=== PATIENT | female | born 1975 | race Caucasian/White ===

== ENCOUNTER 2017-05-26 07:56 | Emergency (ER) | payer MEDICAID ==
[~2017-05-26] VITALS: Ht 170.2 cm; Wt 61.2 kg
[2017-05-26] MEDS ORDERED: [UNRECOGNIZED DRUG - REMARK] (08:09)
--- NOTE | 2017-05-26 08:14 | NUR ---
PT IS IN ROOM #2A. DR RUVALCABA EVALUATED THE PT.
[2017-05-26] MEDS ORDERED: HYDROCODONE/APAP 10-325 MG TABLET PO ONE (08:30)
[2017-05-26] MEDS ORDERED: HYDROCODONE/APAP 10-325 MG TABLET ONE (08:39)
--- NOTE | 2017-05-26 08:44 | NUR ---
PT WAS D/C TO HOME. D/C INSTRUCTIONS GIVEN TO THE PT.
[2017-05-26 08:45] VITALS: BP 128/78
== END 2017-05-26 08:46 | disposition home or self-care (01) ==
LOC: ER 07:56
DX: L03.113 Cellulitis of right upper limb (principal); Z88.5 Allergy status to narcotic agent
CPT/HCPCS: 73130; 99284; A4663

== ENCOUNTER 2017-05-29 21:23 | Emergency (ER) | payer MEDICAID ==
[~2017-05-29] VITALS: Ht 170.2 cm; Wt 61.2 kg
[~2017-05-29 21:23] MED LIST: [UNRECOGNIZED DRUG - REMARK]
--- NOTE | 2017-05-29 23:13 | NUR ---
Patient discharged to home in stable conditon. Written and verbal after care instructions given. Patient verbalizes understanding of instructions.
[2017-05-29] MEDS ORDERED: predniSONE 20 MG TABLET PO ONE (23:15)
[2017-05-29] MEDS ORDERED: predniSONE 10 MG TABLET ONE (23:21)
[2017-05-29] MEDS ORDERED: predniSONE 50 MG TABLET ONE (23:21)
== END 2017-05-29 23:15 | disposition home or self-care (01) ==
LOC: ER 21:24
DX: M02.341 Reiter's disease, right hand (principal)
CPT/HCPCS: A4663; J7512

== ENCOUNTER 2019-05-07 13:41 | Inpatient (IN) | payer MEDICAID, OTHER ==
[2019-05-07] VITALS (9 sets, daily range): BP systolic 112–142; BP diastolic 76–91
[~2019-05-07] VITALS: Ht 167.6 cm; Wt 60.8 kg
[2019-05-07] MEDS ORDERED: ADENOSINE 6 MG/2 ML SYR IV ONE ×2 (13:58→14:00)
[2019-05-07] MEDS ORDERED: LORAZEPAM 2 MG/1 ML VIAL IV ONE ×3 (14:00→18:15)
[2019-05-07] MEDS ORDERED: LORAZEPAM 2 MG/1 ML VIAL ONE ×2 (14:08→14:55)
[2019-05-07 14:30] LABS: BASOPHILS # (AUTO) 0.1 K/uL (0.0-8.0); EOSINOPHILS # (AUTO) 0.1 K/uL (0.0-0.7); EOSINOPHILS % (AUTO) 1.8 % (0.0-7.0); HEMATOCRIT 38.4 % (31.2-41.9); HEMOGLOBIN 13.2 g/dL (10.9-14.3); LYMPHOCYTES # (AUTO) 2.9 K/uL (20.0-40.0); LYMPHOCYTES % (AUTO) 49.1 % (20.5-51.5); MEAN CORPUSCULAR HEMOGLOBIN 31.1 uug (24.7-32.8); MEAN CORPUSCULAR HGB CONC 35 g/dL (32.3-35.6); MEAN CORPUSCULAR VOLUME 90.3 fL (75.5-95.3); MONOCYTES # (AUTO) 0.3 K/uL (2.0-10.0); MONOCYTES % (AUTO) 5.7 % (0.0-11.0); NEUTROPHILS # (AUTO) 2.5 K/uL (1.8-8.9); NEUTROPHILS % (AUTO) 42.4 % (38.5-71.5); PLATELET COUNT (AUTO) 163 K/uL (179-408); RED BLOOD CELL COUNT(AUTO) 4.25 MIL/uL (3.63-4.92); WHITE BLOOD COUNT (AUTO) 5.9 K/uL (3.8-11.8)
[2019-05-07 14:37] LABS: CREATININE 0.7 mg/dL (0.6-1.3); POTASSIUM 3.1 mmol/L (3.5-5.1)
[2019-05-07] MEDS ORDERED: IV NORMAL SALINE 1000 ML BAG IV ONE (14:45)
[2019-05-07 14:49] LABS: BILIRUBIN,DIRECT 0.1 mg/dL (0.0-0.2); BILIRUBIN,TOTAL 0.4 mg/dL (0.2-1.0); TOTAL PROTEIN, SERUM 6.6 g/dL (6.4-8.2)
[2019-05-07] MEDS ORDERED: LORAZEPAM 2 MG/1 ML VIAL IV PRN (16:30)
[2019-05-07] MEDS ORDERED: ONDANSETRON 4 MG/2 ML VIAL IV PRN (16:30)
[2019-05-07] MEDS ORDERED: ACETAMINOPHEN 325 MG TABLET PO PRN (16:30)
[2019-05-07] MEDS: IV NS 1000 ML 1,000 ML IV PRN (16:46)
[2019-05-07] MEDS ORDERED: HALOPERIDOL LACTATE 5 MG/1 ML VIAL IV PRN (18:15)
[2019-05-07 19:47] LABS: ABG BASE EXCESS -3.6 mmol/L; ABG HCO3 20.5 mmol/L; ABG PCO2 34.1 mmHg (35.0-45.0); ABG PH 7.396 (7.350-7.450); ABG PO2 165.1 mmHg (75.0-100.0); ABG SITE RIGHT RADIAL; ABG TOTAL HEMOGLOBIN 13.1 G/dL (12.0-16.0); COHb 0.6 % (0.5-1.5); MetHb 0.4 % (0.0-1.5); O2Hb 98.3 % (94.0-97.0); VENT MODE Nasal Cannula
[2019-05-07 20:09] LABS: ACETAMINOPHEN < 2.0 ug/mL (10-30)
[2019-05-07] MEDS: LORAZEPAM 2 MG/1 ML VIAL IV PRN (20:16)
[2019-05-07] MEDS: FAMOTIDINE. 20 MG/2 ML VIAL IV SCH (21:12)
[2019-05-07] MEDS: LABETALOL HCL 100 MG/20 ML VIAL IV PRN (22:39)
[2019-05-08] VITALS (22 sets, daily range): BP systolic 94–149; BP diastolic 43–110
[2019-05-08] MEDS: LORAZEPAM 2 MG/1 ML VIAL IV PRN ×4 (00:33→23:23)
[2019-05-08 01:10] LABS: *BILIRUBIN,URIN NEGATIVE (NEGATIVE); *BLOOD, URINE NEGATIVE (NEGATIVE); *CLARITY,URINE CLEAR (CLEAR); *COLOR,URINE YELLOW (YELLOW); *KETONES,URINE TRACE (NEGATIVE); *UROBILINOGEN,URINE 0.2 E.U./dl (NORMAL); LEUKOCYTE ESTERASE ,URINE NEGATIVE (NEGATIVE); NITRITE, URINE NEGATIVE (NEGATIVE); PH,URINE 6.5 (5.0-8.0); UGLUCOSE NEGATIVE (NEGATIVE)
[2019-05-08] MEDS: IV NS 1000 ML 1,000 ML IV PRN ×3 (03:01→23:23)
[2019-05-08 05:06] LABS: BASOPHILS # (AUTO) 0.1 K/uL (0.0-8.0); BASOPHILS % (AUTO) 0.7 % (0.0-2.0); EOSINOPHILS % (AUTO) 0.2 % (0.0-7.0); HEMATOCRIT 35.7 % (31.2-41.9); HEMOGLOBIN 12.3 g/dL (10.9-14.3); LYMPHOCYTES # (AUTO) 1.3 K/uL (20.0-40.0); LYMPHOCYTES % (AUTO) 15.6 % (20.5-51.5); MEAN CORPUSCULAR HGB CONC 34 g/dL (32.3-35.6); MEAN CORPUSCULAR VOLUME 90.2 fL (75.5-95.3); MONOCYTES # (AUTO) 0.7 K/uL (2.0-10.0); MONOCYTES % (AUTO) 7.7 % (0.0-11.0); NEUTROPHILS # (AUTO) 6.5 K/uL (1.8-8.9); NEUTROPHILS % (AUTO) 75.8 % (38.5-71.5); PLATELET COUNT (AUTO) 162 K/uL (179-408); RED BLOOD CELL COUNT(AUTO) 3.96 MIL/uL (3.63-4.92); WHITE BLOOD COUNT (AUTO) 8.6 K/uL (3.8-11.8)
[2019-05-08 05:54] LABS: THYROID STIMULATING HORMONE 2.764 mIU/mL (0.358-3.740)
[2019-05-08 06:00] LABS: BILIRUBIN,TOTAL 0.5 mg/dL (0.2-1.0); CREATININE 0.7 mg/dL (0.6-1.3); MAGNESIUM 1.4 mg/dL (1.8-2.4); PHOSPHOROUS 2.7 mg/dL (2.5-4.9); POTASSIUM 3.3 mmol/L (3.5-5.1); TOTAL PROTEIN, SERUM 6.4 g/dL (6.4-8.2)
[2019-05-08] MEDS: FAMOTIDINE. 20 MG/2 ML VIAL IV SCH ×2 (08:40→20:28)
[2019-05-08] MEDS ORDERED: PANTOPRAZOLE SODIUM 40 MG VIAL IV SCH (09:00)
[2019-05-08] MEDS: LABETALOL HCL 100 MG/20 ML VIAL IV PRN (10:46)
[2019-05-08 11:44] LABS: ABG BASE EXCESS -1.7 mmol/L; ABG HCO3 19.4 mmol/L; ABG PCO2 24.8 mmHg (35.0-45.0); ABG PH 7.512 (7.350-7.450); ABG PO2 162.3 mmHg (75.0-100.0); ABG SITE LEFT RADIAL; VENT MODE Nasal Cannula
[2019-05-08] MEDS: MAGNESIUM SULFATE/D5W 100 ML IV SCH ×4 (11:57→16:02)
[2019-05-08] MEDS: POTASSIUM CHLORIDE 50 ML IV SCH ×4 (11:58→15:38)
[2019-05-08] MEDS ORDERED: LORAZEPAM 2 MG/1 ML VIAL IV PRN (12:30)
[2019-05-08 12:43] LABS: *AMPHETAMINE, URINE NEGATIVE (NEGATIVE); *BARBITURATE, URINE NEGATIVE (NEGATIVE); *CANNABINOID, URINE NEGATIVE (NEGATIVE); *COCCAINE, URINE NEGATIVE (NEGATIVE); *OPIATE, URINE NEGATIVE (NEGATIVE); *PHENCYCLIDINE SCREEN,URINE NEGATIVE (NEGATIVE)
[2019-05-08 12:44] LABS: CREATINE KINASE, TOTAL 175 U/L (26-192)
[2019-05-08 17:15] LABS: *AMPHETAMINE, URINE NEGATIVE (NEGATIVE); *BARBITURATE, URINE NEGATIVE (NEGATIVE); *CANNABINOID, URINE NEGATIVE (NEGATIVE); *COCCAINE, URINE NEGATIVE (NEGATIVE); *OPIATE, URINE NEGATIVE (NEGATIVE); *PHENCYCLIDINE SCREEN,URINE NEGATIVE (NEGATIVE)
[2019-05-09] VITALS (11 sets, daily range): BP systolic 102–130; BP diastolic 60–86
[2019-05-09 04:56] LABS: BASOPHILS % (AUTO) 0.5 % (0.0-2.0); EOSINOPHILS # (AUTO) 0.1 K/uL (0.0-0.7); EOSINOPHILS % (AUTO) 0.6 % (0.0-7.0); HEMATOCRIT 35.7 % (31.2-41.9); HEMOGLOBIN 12.8 g/dL (10.9-14.3); LYMPHOCYTES # (AUTO) 1.7 K/uL (20.0-40.0); MEAN CORPUSCULAR HEMOGLOBIN 31.8 uug (24.7-32.8); MEAN CORPUSCULAR HGB CONC 36 g/dL (32.3-35.6); MONOCYTES # (AUTO) 0.7 K/uL (2.0-10.0); MONOCYTES % (AUTO) 8.5 % (0.0-11.0); NEUTROPHILS # (AUTO) 5.9 K/uL (1.8-8.9); NEUTROPHILS % (AUTO) 70.4 % (38.5-71.5); PLATELET COUNT (AUTO) 167 K/uL (179-408); RED BLOOD CELL COUNT(AUTO) 4.01 MIL/uL (3.63-4.92); WHITE BLOOD COUNT (AUTO) 8.4 K/uL (3.8-11.8)
[2019-05-09 05:00] LABS: CREATININE 0.6 mg/dL (0.6-1.3); PHOSPHOROUS 2.7 mg/dL (2.5-4.9); POTASSIUM 3.5 mmol/L (3.5-5.1)
[2019-05-09] MEDS: FAMOTIDINE. 20 MG/2 ML VIAL IV SCH (09:18)
[2019-05-09] MEDS: IV NS 1000 ML 1,000 ML IV PRN (09:37)
[2019-05-09] MEDS: LORAZEPAM 2 MG/1 ML VIAL IV PRN (09:50)
[2019-05-09] MEDS: FAMOTIDINE 20 MG TABLET PO SCH (20:37)
[2019-05-10 06:06] VITALS: BP_SYST 109; BP_SYST 95; BP_DIAS 61; BP_DIAS 67
[2019-05-10] MEDS: FAMOTIDINE 20 MG TABLET PO SCH ×2 (08:43→20:57)
[2019-05-10 11:00] VITALS: BP 113/75
[2019-05-10] MEDS ORDERED: POTASSIUM CHLORIDE 20 MEQ TAB.PRT.SR PO ONE (11:00)
[2019-05-10 13:00] VITALS: BP 128/60
[2019-05-10 20:00] VITALS: BP 114/68
[2019-05-11 04:00] VITALS: BP 79/58
[2019-05-11 07:52] VITALS: BP 93/62
[2019-05-11] MEDS: FAMOTIDINE 20 MG TABLET PO SCH (08:45)
[2019-05-11 10:57] LABS: *BILIRUBIN,URIN NEGATIVE (NEGATIVE); *BLOOD, URINE NEGATIVE (NEGATIVE); *CLARITY,URINE CLEAR (CLEAR); *COLOR,URINE YELLOW (YELLOW); *KETONES,URINE NEGATIVE (NEGATIVE); *UROBILINOGEN,URINE 0.2 E.U./dl (NORMAL); LEUKOCYTE ESTERASE ,URINE 1+ (NEGATIVE); NITRITE, URINE NEGATIVE (NEGATIVE); PH,URINE 6.5 (5.0-8.0); UGLUCOSE NEGATIVE (NEGATIVE)
[2019-05-11 11:16] LABS: BACTERIA,URINE NONE SEEN /HPF (NONE SEEN); RBC,URINE NONE SEEN /HPF (0-3); SQUAMOUS EPITHELIAL CELL,UR FEW /HPF (NONE SEEN)
[2019-05-11 11:19] VITALS: BP 88/55
[2019-05-11 12:59] VITALS: BP 105/77
[2019-05-11] MEDS ORDERED: CEPH-570 PO (13:41)
== END 2019-05-11 15:35 | disposition home or self-care (01) | DRG 812 ==
LOC: ER 13:41 → CCU 15:52 → MEDSURG3 05-09 16:45
PROVIDERS: ADMIT Registered Nurse; ATTEND Registered Nurse
PROC: 05HB33Z Insertion of Infusion Device into Right Basilic Vein, Percutaneous Approach (ICD-10-PCS; principal; 2019-05-08)
DX: T43.291A Poisoning by other antidepressants, accidental (unintentional), initial encounter (principal); J96.01 Acute respiratory failure with hypoxia; G92 Toxic encephalopathy; F33.2 Major depressive disorder, recurrent severe without psychotic features; D69.6 Thrombocytopenia, unspecified; F23 Brief psychotic disorder; E83.51 Hypocalcemia; E83.42 Hypomagnesemia; R00.0 Tachycardia, unspecified; Y92.019 Unspecified place in single-family (private) house as the place of occurrence of the external cause; E87.6 Hypokalemia; N39.0 Urinary tract infection, site not specified; F41.9 Anxiety disorder, unspecified; R73.9 Hyperglycemia, unspecified
CPT/HCPCS: 36415; 36600; 70030-TC; 70450; 71045; 80307; 82803; 83605; 83735; 84100; 84132; 84443; 85025; 87040; 87086; 93005; A4663; G0378; G0480-TC; J0153; J2060; J3475; J3480; J3490; J7030